=== PATIENT | female | born 1975 | race Caucasian/White ===

== ENCOUNTER 2020-11-03 15:35 | Observation (INO) | payer OTHER, SELFPAY ==
[2020-11-02 13:19] VITALS: BMI 23.8
[2020-11-03] VITALS (20 sets, daily range): BP systolic 104–133; BP diastolic 64–93; PULSE 53–90; RESP 12–104; TEMP 36.3–36.7; O2SAT 94–100
[2020-11-03] MEDS: diphenhydrAMINE 50 mg/mL SDV 1mL 12.5 MG IVP (06:46)
[2020-11-03] MEDS: scopolamine 1.5 Patch 1 PATCH TRANSDERMA (06:47)
--- NOTE | 2020-11-03 06:52 | W.PM.OPSUD ---
Surgery/Procedure H&P Update DATE OF PROCEDURE: November 03, 2020 DATE H&P PERFORMED: 10/15/20 H&P UPDATE INFORMATION: I have reviewed H&P completed within last 30 days, I have examined patient prior to procedure and No changes to prior documentation PREOP DIAGNOSIS: Right parotid mass PRIMARY INDICATION FOR PROCEDURE: Right parotid mass PLANNED PROCEDURE: Operation Date: 11/03/20 07:00 Proposed Procedures p Parotidectomy with fat abdominal graft(Not Applicable) - Frank Plasencia MD
[2020-11-03] MEDS: sodium chloride 0.9% 1,000 ML 30 ML IV (06:56)
--- NOTE | 2020-11-03 06:56 | ANES.PREANE2 ---
Pre-Anesthetic Assessment Pre-Anesthetic Assessment: Height/Weight: Height 1.68 m Weight 67.132 kg Temp Pulse Resp BP Pulse Ox 97.6 F 63 18 124/80 99 11/03/20 06:15 11/03/20 06:15 11/03/20 06:15 11/03/20 06:15 11/03/20 06:15 Preop Diagnosis: Right parotid mass Proposed Procedure: Operation Date: 11/03/20 07:00 Proposed Procedures p Parotidectomy with fat abdominal graft(Not Applicable) - Frank Plasencia MD Was Beta Randal taken within 24 hours: N/A Was Clonidine taken within 24 hours: N/A Last intake: Intake Last Liquid Date 11/02/20 Last Liquid Time 22:00 Last Solid Date 11/02/20 Last Solid Time 22:00 Social: Social History: Tobacco and No alcohol Exam: Pre-Anes Outpt Exam: alert, oriented x 3 and regular rate & rhythm Airway: Submandibular: WNL Cervical ROM: WNL MP: 2 Dentition: Full Pulmonary: Pulmonary: COPD Anesthetic Plan: ASA status: 2 Anesthesia: General Risk of > 500 ml blood loss (7ml/kg in children): No Meds/Allergies Current Medications: Current Medications Generic Name Dose Route Start Last Admin Trade Name Freq PRN Reason Stop Dose Admin Sodium Chloride 1,000 mls @ 30 ml s/hr 11/03/20 06:15 11/03/20 06:56 Sodium Chloride 0.9% IV 11/04/20 06:14 30 mls/hr .Q24H GLENYS Administration Data Anesthesia Cardiac Studies: No Data to Display
[2020-11-03] MEDS: clindamycin 600 MG/50 ML PREMIX 100 MG IV (07:00)
[2020-11-03] MEDS: vancomycin 1,000 MG SDV 1000 MG IRRIGATION (08:06)
[2020-11-03] MEDS: fluorescein 1 mg Strip XX (08:08)
[2020-11-03] MEDS: EPINEPHrine 1 mg/mL INJ 2 MG XX ×2 (08:09→09:04)
--- NOTE | 2020-11-03 09:01 | SUR.OPER ---
900 attempt was made to call family for an update on pt condition, phone number given did not work.
[2020-11-03] MEDS: neomycin-poly-bacitracin oint 28 gm 1 APPLIC TOPICAL (09:06)
[2020-11-03] MEDS: thrombin 5,000 unit SDV 5000 UNIT XX (09:44)
--- NOTE | 2020-11-03 11:04 | PM.OP ---
Operative Report Date of procedure: November 03, 2020 Pre-op Diagnosis: Right parotid mass Post-op diagnosis: same Post-op Findings: 1) Multilobulated appearing right tail of parotid mass with free edge on the right sternocleidomastoid muscle 2) Right facial nerve identified and preserved intact; there was one small buccal branch that involved in the intense inflammatory response surrounding the tumor that was inadvertently divided - this was reaproxmated with a 6-0 prolenne suture 3) The right parotid bed was o/w normal 4) Left abdominal wall - normal Procedure Done: Right superficial parotidectomy Left abdominal fat graft harvest Implants: None Specimens removed/disposition: Right tail of parotid mass Pathology: Right tail of parotid mass Surgeon: Frank Plasencia Integrated Marketing Manager: Chuy Raphael Integrated Marketing Manager: Navya Cardozo Anesthesia: General Estimated blood loss (mL): 20 IV fluids (mL): 1,300 Urine output (mL): 1,000 Complications: Division of right buccal branch that was involved with inflammatory response surrounding the right parotid tumor - this was repaired immediately Findings: Multilobulated right tail of parotid mass Condition: stable Disposition: PACU Brief History: 45 yo wf who has a h/o an enlarging right tail of parotid mass who desires surgical therapy. Procedure: The patient was identified in the preoperative holding area and was taken to the operating room where she was placed on the operating table in the supine position. Anesthesia was obtained with general endotracheal anesthesia and the table was turned 180 degrees. The Nirvana nerve monitoring system was placed on the patient's right face, a modified Rj incision was drawn out on the patient's right face, and the incision was then injected with local anesthesia. The right face and left lower quadrant of the abdomen were then prepped and draped in the usual sterile fashion. The incision was made on the patient's right face using a 15 blade and a right facial flap was elevated with both sharp and Metzenbaum scissors. The right facial flap was raised to the anterior border of the right parotid gland, and attention was then turned to the right sternocleidomastoid muscle. The tail of parotid was freed from the anterior border the right sternocleidomastoid muscle. The great auricular nerve was identified and was found to be entering the parotid gland into the right parotid mass. It was therefore clipped and divided. The dissection then proceeded on a wide front using the Nirvana nerve monitoring hemostat from the immediate preauricular tragal cartilage to the sternocleidomastoid muscle with the deepest point being at the tympanomastoid suture line. The facial nerve trunk was identified both visually and electrically at this point, it was then followed with both the nerve monitoring hemostat and the Pierre dissector to the pes anserinus. The lower branch of the facial nerve was then dissected free from the surrounding tissues. As mentioned above there was an intense inflammatory response around the tumor with significant adhesions and obliteration of the normal tissue planes. In this process one of the buccal branches of the facial nerve was cut and was repaired immediately with a 6-0 Prolene suture. The dissection continued until the mass was isolated and was then sequentially dissected free from the parotid with a wide cuff of normal tissue surrounding the right tail of parotid tumor using blunt dissection with the Nirvana nerve monitoring hemostat and bipolar cautery. Once the mass was removed the wound was inspected for hemostasis which was found to be adequate. 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 At this point attention was turned to the left lower quadrant of the abdomen where the incision was made that had been previously marked out. The incision was injected with local anesthesia prior to the incision. At this point a piece of abdominal fat was harvested using electrocautery and was then placed in the right facial wound where it was sutured in place in the right parotid surgical defect. A drain was placed in the right facial wound and the wound was then closed with interrupted 4-0 Monocryl sutures subcu and running 5-0 fast-absorbing gut on the skin. The wound was then cleaned and covered triple antibiotic ointment. The left abdominal wound had a [place] drain placed and it was closed with interrupted 4-0 Monocryl sutures subcu and interrupted 3-0 Prolene on the skin. The left abdominal wound was then cleaned, covered with triple antibiotic ointment and a sterile dressing. At this point the procedure was terminated and control of the patient was returned to anesthesia where she underwent an uneventful reversal of anesthesia and extubation and was taken to the recovery room in stable condition. There were no operative or anesthetic complications. The patient had normal bilateral facial nerve function in the recovery room.
[2020-11-03] MEDS: fentaNYL 50 mcg/mL INJ 2mL IVP ×2 (14:18→14:23)
--- NOTE | 2020-11-03 15:34 | ANE.PACU2 ---
Inpatient post-anesthesia follow up: Airway intact: Yes Vital signs: Temperature 97.3 F Pulse Rate 84 Respiratory Rate 12 Blood Pressure 107/69 Pulse Oximetry 99 Oxygen Delivery Me thod Nasal Cannula Oxygen Flow Rate 1 Fraction of Inspir ed Oxygen Hydration adequate: Yes Nausea and vomiting: No Pain level: 2 Mental status: Baseline
--- NOTE | 2020-11-03 17:50 | PM.PN ---
Subjective Subjective: Interval history: 45 yo wf who is night of surgery s/p right superficial parotidectomy with abdominal fat graft reconstruction for an apparent Warthin's tumor. The patient reports that she is doing well and has no c/o. She is eating well and c/o minimal pain. The patient is o/w without c/o. Vitals/I&O/Wt Last Vital Signs Temp 97.3 F L 11/03/20 11:03 Pulse 56 L 11/03/20 16:53 Resp 14 11/03/20 15:00 BP 116/66 11/03/20 15:00 Pulse Ox 94 11/03/20 16:53 11/03/20 11/03/20 11/03/20 06:59 14:59 22:59 Intake Total 350 / 350 302 / 652 Output Total 2019 Balance -1670 / -1670 302 / -1368 Weight last 48 hrs Weight 67.132 kg Physical Exam Const: COMMON NORMALS: no acute distress, average body habitus and patient oriented x3 GENERAL APPEARANCE: cooperative and comfortable ORIENTATION/CONSCIOUSNESS: Yes awake, Yes oriented to person, Yes oriented to place and Yes oriented to time HENMT: COMMON NORMALS: normocephalic, atraumatic and Normal external nose present HEAD & SCALP: normocephalic and atraumatic FACE & SINUS: normal facial exam and other (Right facial wound intact without swelling.) NOSE: Normal external nose present Eye: COMMON NORMALS: EOMs intact bilaterally and conjunctivae normal CONJUNCTIVA: Yes conjunctivae normal Neck/C-Spine: COMMON NORMALS: no lymphadenopathy and supple Resp: COMMON NORMALS: normal respiratory effort, No use of accessory muscles and clear to auscultation bilaterally AUSCULTATION: clear to auscultation bilaterally Cardio: COMMON NORMALS: regular rate, regular rhythm and No murmurs present (Cardio) RATE: regular rate RHYTHM: regular rhythm GI: COMMON NORMALS: Normal to inspection, nondistended, normoactive bowel sounds present Extremity: COMMON NORMALS: normal to inspection and full ROM Neuro: COMMON NORMALS: patient oriented x3 and CN's II-XII intact bilaterally (Right facial nerve function is normal.) SENSORIUM/ORIENTATION: Yes oriented to person, Yes oriented to place and Yes oriented to time Psych: COMMON NORMALS: mental status grossly normal Skin: COMMON NORMALS: no rashes or lesions noted GENERAL SKIN EXAM: no rashes or lesions noted Urinary Catheter Management^: Latex Free: Cath Placed During This Visit: yes, but has since been removed by the nurse Urinary Catheter Date of Insertion: 11/03/20 Urinary Catheter Time of Insertion: 07:35 Date Urinary Catheter Removed: 11/03/20 Time Urinary Catheter Discontinued: 10:53 A&P Additional A&P Information Impression: 45 yo wf who is night of surgery s/p right superficial parotidectomy who is doing well. There is no wound swelling/hematoma and the patient's facial nerve function is normal Plan: - Observe overnight - SAMY and [place] drains are in place - I educated the patient and her spouse in drain management - Apply triple antibiotic ointment to the right facial wound TID - Hydrocodone or Morphine for pain - Regular diet - SCDs - Anticipate d/c in the am Attestations Medical Necessity Statement*: The patient requires overnight observation of her wound and airway Coding Level of Care Code Acute Newspaper Distributor Supervisor for Rafa Rapp
[2020-11-03] MEDS: lactated ringers 1,000 ML 100 ML IV (17:52)
[2020-11-03] MEDS: docusate sodium 100 mg Capsule PO (17:52)
--- NOTE | 2020-11-03 18:36 | PC.NURSE ---
sanaz drain to right neck emptied, demonstrated to patient and family member who was present. verbalized understanding and return demonstration performed.
[2020-11-03] MEDS: famotidine 20 mg/2 mL INJ IVP (21:34)
[2020-11-04] VITALS: BP 125/69; PULSE 54; RESP 14; TEMP 36.5; O2SAT 96
--- NOTE | 2020-11-04 04:44 | P.PN_ITS ---
Subjective Subjective: Interval history: 45 yo wf who is POD #1 s/p right superficial parotidectomy who is doing well by her report. The patient reports that she is eating well, and is o/w doing well. She has no c/o and reports minimal pain. Vitals/I&O/Wt Last Vital Signs Temp 97.7 F 11/04/20 00:00 Pulse 54 L 11/04/20 00:00 Resp 14 11/04/20 00:00 BP 125/69 11/04/20 00:00 Pulse Ox 96 11/04/20 00:00 11/03/20 11/03/20 11/04/20 14:59 22:59 06:59 Intake Total 350 / 350 362 / 712 Output Total 2019 Balance -1670 / -1670 347 / -1323 Weight last 48 hrs Weight 67.132 kg Weight 67.132 kg Physical Exam Const: COMMON NORMALS: no acute distress, patient oriented x3 and alert HENMT: COMMON NORMALS: normocephalic, atraumatic and Normal external nose present HEAD & SCALP: normocephalic and atraumatic FACE & SINUS: normal facial exam and other (The right facial incision is intact and without erythema or fluctuance.) NOSE: Normal external nose present Eye: COMMON NORMALS: EOMs intact bilaterally and conjunctivae normal CONJUNCTIVA: Yes conjunctivae normal Neck/C-Spine: COMMON NORMALS: full ROM, no lymphadenopathy and supple GENERAL: Yes trachea midline Lymph: LYMPHATIC: no lymphadenopathy noted Resp: COMMON NORMALS: clear to auscultation bilaterally AUSCULTATION: clear to auscultation bilaterally Cardio: COMMON NORMALS: regular rate, regular rhythm and No murmurs present ( Cardio) RATE: regular rate RHYTHM: regular rhythm GI: COMMON NORMALS: Normal to inspection, nondistended, normoactive bowel sounds present Extremity: COMMON NORMALS: normal to inspection Neuro: COMMON NORMALS: patient oriented x3 and CN's II-XII intact bilaterally (The right facial nerve function is normal.) SENSORIUM/ORIENTATION: Yes alert Psych: COMMON NORMALS: mental status grossly normal Skin: COMMON NORMALS: no rashes or lesions noted GENERAL SKIN EXAM: no rashes or lesions noted Urinary Catheter Management^: Latex Free: Cath Placed During This Visit: yes, but has since been removed by the nurse Urinary Catheter Date of Insertion: 11/03/20 Urinary Catheter Time of Insertion: 07:35 Date Urinary Catheter Removed: 11/03/20 Time Urinary Catheter Discontinued: 10:53 A&P Additional A&P Information Impression: 45 yo wf who is POD #1 s/p right superficial parotidectomy who is doing well from this standpoint with normal facial nerve function bilaterally Plan: - Regular diet - D/C to home - [place] () tabs: take 1-2 po Q4-6 hours prn pain, #25, NR - Apply MICHAEL to the right facial wound TID - Patient instructed in SAMY drain and [place] drain use - F/U in Dr. Plasencia's office tomorrow. Notify Dr. Plasencia for any problems. Attestations Medical Necessity Statement*: The patient required overnight observation of right facial wound and airway. Coding Level of Care Code Acute Financial Aid Administrator for Rafa Rapp
[2020-11-04 05:08] VITALS: BP 122/62; PULSE 66; RESP 14; TEMP 36.8; O2SAT 99
--- NOTE | 2020-11-04 07:15 | PC.NURSE ---
PRESCRIPTION: WRITTEN PRESCRIPTION COPIED AND PLACED IN THE PATIENT CHART. HARD COPY OF PRESCRIPTION GIVEN DIRECTLY TO THE PATIENT.
[2020-11-04 08:39] VITALS: BP 122/62; PULSE 66; RESP 14; TEMP 36.8; O2SAT 99
== END 2020-11-04 08:40 | disposition home or self-care (01) ==
LOC: MEDSURG 15:35
PROVIDERS: Admitting Provider Specialist; PCP Plastic Surgery; Visit Provider Specialist
PROC: (CPT 42410; principal; 2020-11-03 07:00)
DX: D11.0 Benign neoplasm of parotid gland (principal); J44.9 Chronic obstructive pulmonary disease, unspecified
CPT/HCPCS: 15769; 42415; 12345; 88331; 96365; G0378; J0171; J0330; J1100; J1170; J1200; J2250; J2370; J2405; J2704; J3010; J3370; J3490; J7030